=== PATIENT | male | born 1995 | race American Indian/Alaskan Native ===

== ENCOUNTER 2022-05-02 18:37 | Emergency (ER) | payer SELFPAY ==
[2022-05-02 20:48] LABS: Basophils # (Auto) 0.1 K/mm3 (0.0-0.1); Basophils % (Auto) 0.7 % (0.0-1.8); Eosinophils # (Auto) 0.3 K/mm3 (0.0-0.4); Eosinophils % (Auto) 3.2 % (0.0-4.3); Hematocrit 39.2 % (35.5-45.6); Hemoglobin 13.5 gm/dl (11.8-15.2); Lymphocytes # (Auto) 2.5 K/mm3 (1.2-5.4); Lymphocytes % (Auto) 25.8 % (13.4-35.0); Mean Corpuscular HGB Conc 34 % (32-34); Monocytes # (Auto) 1.1 K/mm3 (0.0-0.8); Monocytes % (Auto) 11.7 % (0.0-7.3); Red Blood Count 6.89 M/mm3 (3.65-5.03)
[2022-05-02 21:10] LABS: Mean Corpuscular Volume 57 fl (84-94); Platelet Count 166 K/mm3 (140-440)
[2022-05-02 21:16] LABS: Alanine Aminotransferase 28 units/L (7-56); Albumin 4.3 g/dL (3.9-5); BUN/Creatinine Ratio 7; Blood Urea Nitrogen 7 mg/dL (9-20); Calcium 9.1 mg/dL (8.4-10.2); Hemolysis Index 3
[2022-05-03] MEDS ORDERED: KETOROLAC 30 MG/1 ML INJ IV ONE (02:19)
[2022-05-03] MEDS ORDERED: ONDANSETRON 4 MG/2 ML INJ IV ONE (02:19)
[2022-05-03] MEDS ORDERED: SODIUM CHLORIDE 0.9% 1000 ML 1,000 ML IV ONE (02:19)
--- NOTE | 2022-05-03 05:58 | Emergency Department Report ---
ED General Adult HPI - General Chief complaint: Sickle Cell Crisis Stated complaint: SICKLE CELL CRSIS Source: patient Mode of arrival: Ambulatory Limitations: No Limitations - History of Present Illness Initial comments: Patient is a 27-year-old male with no past medical history presents to the ED with complaint of acute onset persistent diffuse body aches and pains and genera lized weakness for the last 1 week. Patient states that the symptoms have been persistent despite taking kujw-jlu-[id number] pain medications. Patient states that no one else at home is had similar symptoms. Patient denies dizziness, syncope, chest pain, shortness of breath, sore throat, nasal and sinus congestion, cough, abdominal pain, nausea and vomiting or diarrhea, dysuria, urinary frequency and urgency or headache. MD Complaint: body aches and pain; generalized weakness -: Gradual, week(s) (1) Location: back, upper extremity, lower extremity Radiation: non-radiation Severity scale (0 -10): 2 Quality: aching, constant Consistency: constant Improves with: none Worsens with: none Associated Symptoms: denies other symptoms. denies: confusion, chest pain, cough, diaphoresis, fever/chills, headaches, loss of appetite, malaise, nausea/vomiting, shortness of breath, syncope, other Treatments Prior to Arrival: none - Related Data Allergies Allergy/AdvReac Type Severity Reaction Status Date / Time No Known Allergies Allergy Verified 05/02/22 20:14 ED Review of Systems ROS: Stated complaint: SICKLE CELL CRSIS Other details as noted in HPI Constitutional: denies: chills, fever Eyes: denies: eye pain, eye discharge, vision change ENT: denies: ear pain, throat pain Respiratory: denies: cough, shortness of breath, wheezing Cardiovascular: denies: chest pain, palpitations Endocrine: no symptoms reported Gastrointestinal: denies: abdominal pain, nausea, vomiting, diarrhea Genitourinary: denies: urgency, dysuria Musculoskeletal: back pain, arthralgia, myalgia. denies: joint swelling Skin: denies: rash, lesions Neurological: denies: headache, weakness, paresthesias Psychiatric: denies: anxiety, depression Hematological/Lymphatic: denies: easy bleeding, easy bruising ED Physical Exam - General Limitations: No Limitations General appearance: alert, in no apparent distress - Head Head exam: Present: atraumatic, normocephalic, normal inspection - Eye Eye exam: Present: normal appearance, PERRL, EOMI Pupils: Present: normal accommodation - ENT ENT exam: Present: normal exam, normal orophraynx, mucous membranes moist, TM's normal bilaterally, normal external ear exam - Neck Neck exam: Present: normal inspection, full ROM - Respiratory Respiratory exam: Present: normal lung sounds bilaterally. Absent: respiratory distress, wheezes, rales, rhonchi, chest wall tenderness, accessory muscle use, decreased breath sounds - Cardiovascular Cardiovascular Exam: Present: regular rate, normal rhythm, normal heart sounds. Absent: systolic murmur, diastolic murmur, rubs, gallop - GI/Abdominal GI/Abdominal exam: Present: soft, normal bowel sounds. Absent: tenderness, guarding, rebound, hyperactive bowel sounds, hypoactive bowel sounds, organomegaly - Extremities Exam Extremities exam: Present: normal inspection, full ROM, normal capillary refill. Absent: tenderness - Back Exam Back exam: Present: normal inspection, full ROM. Absent: tenderness, CVA tenderness (R), CVA tenderness (L), muscle spasm, paraspinal tenderness, vertebral tenderness - Neurological Exam Neurological exam: Present: alert, oriented X3, CN II-XII intact, normal gait, reflexes normal - Psychiatric Psychiatric exam: Present: normal affect, normal mood - Skin Skin exam: Present: warm, dry, intact, normal color. Absent: rash ED Course Vital Signs 05/02/22 05/02/22 05/03/22 20:14 20:24 04:14 Temperature 98.3 F 98.2 F Pulse Rate 94 H 107 H 78 Respiratory 18 14 Rate Blood Pressure 175/87 65/42 Blood Pressure [Left] O2 Sat by Pulse 99 91 100 Oximetry 05/03/22 06:47 Temperature Pulse Rate 82 Respiratory 12 Rate Blood Pressure Blood Pressure 127/86 [Left] O2 Sat by Pulse 100 Oximetry ED Medical Decision Making - Lab Data Result diagrams: 05/02/22 20:33 05/02/22 20:33 - Medical Decision Making This is a 27-year-old male with no past medical history presents to the ED with complaint of acute onset persistent diffuse body aches and pains and generalized weakness for the last 1 week. Patient states that the symptoms have been persistent despite taking [id number] pain medications. Patient states that no one else at home is had similar symptoms. In the ED, patient is alert and oriented x3 and is not in any distress. Patient was treated in the ED for pain, and all lab test results were reviewed and are all nonactionable. Patient was discharged home on medications and advised to follow-up with her his primary care physician in 7 to 10 days for reevaluation. Patient was advised to return to the ED immediately if symptoms get worse. - Differential Diagnosis Muscle spasm; muscle strain; viral syndrome; Critical care attestation.: If time is entered above; I have spent that time in minutes in the direct care of this critically ill patient, excluding procedure time. ED Disposition Clinical Impression: Spasm of muscle of lower back Muscle spasms of lower extremity Qualifiers: Laterality: unspecified laterality Qualified Code(s): M62.838 - Other muscle spasm Disposition: HOME / SELF CARE / HOMELESS Is pt being admited?: No Does the pt Need Aspirin: No Condition: Stable Instructions: Muscle Cramps and Spasms, Rjvy-[id number], Muscle Cramps and Spasms Additional Instructions: All lab test results were reviewed and are all nonactionable. Therefore take jkgl-tyj-[id number] pain medications as needed. Drink plenty of fluids, and follow-up with your primary care physician in 7 to 10 days for reevaluation. Return to the ED immediately if symptoms get worse. Referrals: YARA OROZCO MD [Primary Care Provider] - 3-5 Days Time of Disposition: 05:56 Print Language: MAORI
[2022-05-03 06:47] VITALS: BP 127/86
== END 2022-05-03 06:47 | disposition home or self-care (01) ==
LOC: ED 18:37
DX: M62.830 Muscle spasm of back (principal); M62.838 Other muscle spasm
CPT/HCPCS: 36415; 80053; 85025; 85045; 96361; 96374; 96375; 99283; J1885; J2405; J7030; 80320; G0480